=== PATIENT | female | born 1960 | race Caucasian/White ===

== ENCOUNTER → 2019-01-28 | Outpatient (CLI) | payer MEDICARE, OTHER ==
--- NOTE | 2019-01-28 13:31 | CT ---
EXAMINATION TYPE: CT lumbar spine wo con DATE OF EXAM: 01/28/2019 12:34 PM COMPARISON: MRI lumbar spine December 02, 2015. HISTORY: Lumbago per order. Low back pain with numbness in the left leg and buttocks for [address] DLP: 1488.8 mGycm Automated exposure control for dose reduction was used. Unenhanced CT of the lumbar spine was performed. Bone and soft tissue window settings are submitted as well as coronal and sagittal reconstructions. Findings: 5 lumbar-type vertebra are redemonstrated. Lumbar spine show straightening alignment. No ac afognak fracture or dislocation is seen. Vertebral body heights and disc space heights are maintained. No large posterior disc herniations are present. Axial images at T12-L1, L1-L2, L2-L3, and L3-L4 levels are felt to appear within normal limits. Axial images at the L4-L5 level show mild facet degenerative changes bilaterally with mild 2 moderate broad disc bulge mildly effacing anterior thecal sac and causing mild to moderate left greater than right bilateral anterior inferior neural foraminal narrowing. No significant change from prior MRI. Axial images at L5-S1 level show mild facet degenerative changes but spinal canal is preserved and bi lateral neural foramina are patent. Note is made of 2 mm nonobstructing calculus left kidney mid to lower pole level coronal image 26. Th ere is moderate atherosclerotic change and ectatic abdominal aorta measuring up to 2.1 cm transversel y. No greater than 3 cm aneurysm is evident. IMPRESSION: Some fairly mild degenerative changes lower lumbar spine redemonstrated most prominent L4 -L5 level. No significant progression from 2016 MRI. No new large disc herniation seen to account for patient's left-sided radiculopathy type symptoms.
== END | disposition home or self-care (01) ==
LOC: RADCTMAIN 12:06
PROVIDERS: ATTEND Psychiatry & Neurology Neurology
DX: M47.816 Spondylosis without myelopathy or radiculopathy, lumbar region (principal); Z88.1 Allergy status to other antibiotic agents; Z88.8 Allergy status to other drugs, medicaments and biological substances
CPT/HCPCS: 72131

== ENCOUNTER 2019-08-29 14:45 | Emergency (ER) | payer MEDICARE, OTHER ==
[2019-08-29 14:56] VITALS: BP 121/78; PULSE 95; RESP 18; TEMP 97.9
[2019-08-29] MEDS ORDERED: OFLOXACIN 0.3% OPHTH DROPS 5 ML BOTTLE BOTH EYES STA (15:57)
[2019-08-29] MEDS ORDERED: PROPARACAINE 0.5% OPHTH DROPS 15 ML BTL BOTH EYES SCH (16:00)
--- NOTE | 2019-08-29 16:00 | ED ---
Eye Problem HPI - General Chief complaint: Eye Problems Stated complaint: Eye Pain Time Seen by Provider: 08/29/19 15:22 Source: patient, RN notes reviewed, old records reviewed Mode of arrival: ambulatory Limitations: no limitations - History of Present Illness Initial comments: 4-year-old female presents today for evaluation for concern for lateral eye pain, irritation. She reports of the skin is earlier tonight around her eyes well. Denies any visual changes. Patient states that she does have a history of glaucoma and she does see Dr. Baker. Patient reports that she recently stopped steroid drops for eye and has been continuing artificial tears. Patient states she has no other complaints. She reports that she has waking up with crusting around her eyes. She denies any pain with bright lights. - Related Data Allergies Allergy/AdvReac Type Severity Reaction Status Date / Time clarithromycin [From Biaxin] Allergy Rash/Hives Verified 08/29/19 14:57 marijuana Allergy Anaphylaxis Verified 08/29/19 14:57 duloxetine [From Cymbalta] AdvReac Unknown Verified 08/29/19 14:57 Review of Systems ROS Statement: Those systems with pertinent positive or pertinent negative responses have been documented in the HPI. ROS Other: All systems not noted in ROS Statement are negative. Past Medical History Past Medical History: COPD, Hyperlipidemia Additional Past Medical History / Comment(s): back stimulator History of Any Multi-Drug Resistant Organisms: None Reported Past Surgical History: Appendectomy, Section, Cholecystectomy Additional Past Surgical History / Comment(s): lung biopsy, neck surgery x2, tendonitis surgery, ganglion cyst surger, dental surgery Past Psychological History: No Psychological Hx Reported Smoking Status: Current every day smoker Past Alcohol Use History: None Reported Past Drug Use History: None Reported General Exam - General Exam Comments Initial Comments: 59-year-old female. Alert and oriented. No distress. Limitations: no limitations General appearance: alert, in no apparent distress Head exam: Present: atraumatic, normocephalic, normal inspection Eye exam: Present: normal appearance, PERRL, EOMI, other (Bilateral conjunctival injection. Some dry skin around the lateral medial canthus. Patient does have some crusting.). Absent: scleral icterus, conjunctival injection, periorbital swelling ENT exam: Present: normal exam, mucous membranes moist Neck exam: Present: normal inspection. Absent: tenderness, meningismus, lymphadenopathy Respiratory exam: Present: normal lung sounds bilaterally. Absent: respiratory distress, wheezes, rales, rhonchi, stridor Cardiovascular Exam: Present: regular rate, normal rhythm, normal heart sounds. Absent: systolic murmur, diastolic murmur, rubs, gallop, clicks GI/Abdominal exam: Present: soft, normal bowel sounds. Absent: distended, tenderness, guarding, rebound, rigid Extremities exam: Present: normal inspection, full ROM, normal capillary refill. Absent: tenderness, pedal edema, joint swelling, calf tenderness Back exam: Present: normal inspection Neurological exam: Present: alert, oriented X3, CN II-XII intact Psychiatric exam: Present: normal affect, normal mood Course Vital Signs 08/29/19 14:52 Temperature 97.9 F Pulse Rate 95 Respiratory 18 Rate Blood Pressure 121/78 O2 Sat by Pulse 95 Oximetry Medical Decision Making - Medical Decision Making 59-year-old female presents today with bilateral eye conjunctival injection, drainage. She has treated with steroid drop. The normal pressure of eyes normal 13 and 14. Patient's does have some crusting around the eye. Discussed putting her on antibiotic drops. Discussed appropriate follow-up with op hthalmologist. Discussed return parameters and close follow-up with PCP. Disposition Clinical Impression: Conjunctivitis Disposition: HOME SELF-CARE Condition: Good Instructions (If sedation given, give patient instructions): Conjunctivitis (ED) Additional Instructions: Use the antibiotic drop 4 times a day the advised of the next 5 days. Patient should have close follow-up with your shelter monitor. Return to the emergency department if any alarming signs or symptoms occur. Is patient prescribed a controlled substance at d/c from ED?: No Referrals: Iván Brothers MD [Primary Care Provider] - 1-2 days Time of Disposition: 16:31
== END 2019-08-29 16:46 | disposition home or self-care (01) ==
LOC: EC 14:45
DX: H10.9 Unspecified conjunctivitis (principal); F17.200 Nicotine dependence, unspecified, uncomplicated; Z88.1 Allergy status to other antibiotic agents; Z88.8 Allergy status to other drugs, medicaments and biological substances
CPT/HCPCS: 99283

== ENCOUNTER → 2020-05-31 | Outpatient (CLI) | payer MEDICARE, OTHER | END | disposition home or self-care (01) | LOC: LABWHC1 14:34 | PROVIDERS: ATTEND Psychiatry & Neurology Neurology | DX: Z01.818 Encounter for other preprocedural examination (principal) | CPT/HCPCS: 36415; 93005 ==

== ENCOUNTER → 2021-08-11 | Outpatient (CLI) | payer MEDICARE, OTHER ==
--- NOTE | 2021-08-11 09:59 | CT ---
EXAMINATION TYPE: CT lumbar spine wo con DATE OF EXAM: 08/11/2021 COMPARISON: CT lumbar spine 01/28/2019 HISTORY: Lumbar spondylosis CT DLP: 1838 mGycm Automated exposure control for dose reduction was used. An unenhanced CT of the lumbar spine was performed. Bone and soft tissue window settings are submitt ed as well as coronal and sagittal reconstructions. FINDINGS: Similar to prior exam. Lumbar vertebral bodies show preserved height, alignment, and bone mineralizat ion. Some mild loss of disc height L2-3, L3-4. There is mild multilevel spondylosis. Infrarenal abdom inal aorta shows a measurement of approximately 2.7 cm, there is atheromatous change. L1-L2: Normal disc space height. No disc herniation protrusion or central stenosis. No facet joint arthropathy. No evidence for foraminal encroachment. L2-L3: Normal disc space height. No disc herniation protrusion or central stenosis. No facet joint arthropathy. No evidence for foraminal encroachment. L3-L4: Posterior broad-based disc bulge causes mild anterior mass effect on the thecal sac. No signif icant spinal stenosis. Circumferential extension of disc material encroaches minimally on the inferio r aspect of the foramina. L4-L5: Posterior broad-based disc bulge causes anterior mass effect on the thecal sac similar to prio r exam. There is hypertrophic change of the ligamentum flavum causing posterior lateral mass effect o n the thecal sac, similar changes of spinal stenosis, moderate spinal stenosis is suspected, may have progressed in the interval, no significant foraminal encroachment, circumferential extension of disc material may encroach somewhat on the inferior aspect of the foramina L5-S1: Posterior broad-based disc bulge is mild, there is no significant spinal stenosis, there may b e contact with the proximal S1 nerve roots. No significant foraminal encroachment. IMPRESSION: Degenerative disc disease as described. Additional findings above. No paraspinal masses are identified. Lumbar segments are intact.
== END | disposition home or self-care (01) ==
LOC: RADCTMAIN 06:54
PROVIDERS: ATTEND Psychiatry & Neurology Neurology
DX: M51.36 Other intervertebral disc degeneration, lumbar region (principal); M47.816 Spondylosis without myelopathy or radiculopathy, lumbar region; I70.0 Atherosclerosis of aorta
CPT/HCPCS: 72131

== ENCOUNTER → 2022-05-17 | Outpatient (CLI) | payer MEDICARE, OTHER | END | disposition home or self-care (01) | LOC: LABWHC1 13:48 | PROVIDERS: ATTEND Psychiatry & Neurology Neurology | DX: Z01.812 Encounter for preprocedural laboratory examination (principal); Z20.822 Contact with and (suspected) exposure to COVID-19 | CPT/HCPCS: U0003; U0005 ==